=== PATIENT | male | born 1945 | race Caucasian/White ===

== ENCOUNTER 2020-06-07 16:59 | Emergency (ER) | payer MEDICARE, SELFPAY ==
--- NOTE | ~2020-06-07 | XR_ITS ---
EXAMINATION: XR foot RT min 3V DATE: 06/07/2020 18:49 INDICATION: Right foot pain. TECHNIQUE: 4 views of right foot were obtained. COMPARISON: Right foot radiographs 09/22/2010 FINDINGS: Bone alignment is normal. No fracture. There is severe osteoarthritis of first metatarsopha langeal joint and mild osteoarthritis of some the interphalangeal joints and midfoot joints. There ar e enthesophytes at the posterior and plantar aspects of calcaneal tuberosity. IMPRESSION: 1. Particular osteoarthritis. Reviewed, dictated and finalized at location A.
[2020-06-07 18:04] VITALS: BP 160/84; PULSE 98; RESP 18; TEMP 37.2; O2SAT 100
--- NOTE | 2020-06-07 18:27 | ED.GENADULT ---
HPI - General Adult General Chief complaint: Skin/Abscess/Foreign Body Stated complaint: right ankle infection Time Seen by Provider: 06/07/20 18:27 Source: patient Mode of arrival: ambulatory Limitations: no limitations History of Present Illness HPI narrative: 34-year-old male patient presents to the [facility] with complaints of right foot and right leg pain. Patient states that he has had a wound/callus on the bottom of his foot under the pinky toe for the past at least 6 months. Patient states he has been trying to soak it and scrape it off with a knife. Patient states about a month and a half ago he was visiting his son in [place] and got up in the middle night walking across a wooden floor without shoes on and states he noticed that when he got back to the bedroom he had some blood coming from his foot but does denies any specific injury. Patient does have a history of neuropathy. Patient states he has never been worked up for diabetes before and states he does have issues with whitecoat syndrome and states he has not been to the doctor in several years. Patient states that the past 2 days now he has noticed swelling to the foot and some redness to his lower extremity with warmth. Patient states he knows that it is getting more painful to walk on the foot. Related Data Allergies Allergy/AdvReac Type Severity Reaction Status Date / Time No Known Allergies Allergy Unknown Verified 06/07/20 17:53 Review of Systems Review of Systems: Narrative: CONSTITUTIONAL: Denies fever, chills, or sweats. EYES: Denies visual changes, redness, or discharge. ENT: Denies rhinorrhea, congestion, sore throat, or otalgia. CARDIOVASCULAR: Denies chest pain, palpitations, or edema. RESPIRATORY: Denies cough or dyspnea. GASTROINTESTINAL: Denies abdominal pain, nausea, vomiting, or diarrhea. GENITOURINARY: Denies dysuria or hematuria. SKIN: Denies rash or itching. MUSCULOSKELETAL: Denies back pain, joint pain, or myalgia. Positive right foot and right lower extremity pain NEUROLOGIC: Denies headache, numbness, or weakness. PSYCHIATRIC: Denies anxiety or depression. [facility] Past Medical History Medical History (Updated 06/07/20 @ 19:01 by DONALD Ward) Anal fissure Hypertension Social History Social History Gender identity (if verbalized by the patient): Male Comments At the time of my signature I agree with nursing past medical history, surgical, social, and family history. There is no relevant family history pertinent to the presenting complaint. Exam Narrative: Exam Narrative: GENERAL: Well-appearing, well-nourished, and in no acute distress. HEAD: Normocephalic, atraumatic. EYES: PERRLA and EOMI. ENT: Nares clear, no rhinorrhea or epistaxis. Mucous membranes moist. NECK: Supple. No lymphadenopathy CHEST: Clear to auscultation. No respiratory distress. HEART: Regular rate and rhythm. No murmur heard. Normal peripheral pulses. ABDOMEN: Soft, nontender, nondistended, normal active bowel sounds. EXTREMITIES: Patient able to bear weight and ambulate with increasing pain to the right foot. Patient does appear to have a callus noted on the sole of the foot under the pinky toe area. The callus does appear open with a black scab in the center and does have tenderness palpation around the callus area. Open callused area measuring approximately 1 cm in diameter. Patient does have 2+ pitting edema noted to the foot with swelling and erythema noted alf up the right calf with warmth present. Normal plantar/dorsiflexion, inversion/eversion. Distal motor and neurovascular status are intact SKIN: Warm, dry, no rash. NEURO: No focal deficits. Alert and oriented x3. Course Reevaluation(s) Reevaluation #1: Reevaluated patient after x-ray resulted. Discussed with him that the x-ray does not show any evidence of any infection to the bone which is reassuring. Discussed with patient we jamal markham
== END 2020-06-07 19:06 | disposition home or self-care (01) ==
PROVIDERS: Emergency Provider Nurse Practitioner Family
DX: L03.115 Cellulitis of right lower limb (principal); I10 Essential (primary) hypertension
CPT/HCPCS: 73630; 99213; G0463

== ENCOUNTER 2020-06-18 15:17 | Emergency (ER) | payer MEDICARE, SELFPAY ==
--- NOTE | 2020-06-18 15:24 | ED.GENADULT ---
HPI - General Adult General Chief complaint: Skin/Abscess/Foreign Body Stated complaint: riht leg pain Time Seen by Provider: 06/18/20 15:24 Source: patient Mode of arrival: ambulatory Limitations: no limitations History of Present Illness HPI narrative: 74-year-old male patient presents to the [facility] with complaints of right leg pain. Patient was seen here by this provider about 10 days ago and was diagnosed with cellulitis at that time. Patient was given an antibiotic. Patient states he did take the antibiotic however towards the end of the antibiotic he started to space them out because he was running out of antibiotics. Discussed with patient if he ever followed up with the referrals that we gave him that day, patient states he has not called anyone for a follow-up because the leg was getting better. Patient states he has been having chills the last 2 days and is noticed that the redness has worsened and continues to have warmth. Denies chest pain, shortness of breath. Denies any fevers that he is aware of. Related Data Home Medications Medication Instructions Recorded Confirmed No Home Medications 06/18/20 06/18/20 Allergies Allergy/AdvReac Type Severity Reaction Status Date / Time No Known Allergies Allergy Unknown Verified 06/18/20 15:45 Review of Systems Review of Systems: Narrative: CONSTITUTIONAL: Denies fever, chills, or sweats. EYES: Denies visual changes, redness, or discharge. ENT: Denies rhinorrhea, congestion, sore throat, or otalgia. CARDIOVASCULAR: Denies chest pain, palpitations, or edema. RESPIRATORY: Denies cough or dyspnea. GASTROINTESTINAL: Denies abdominal pain, nausea, vomiting, or diarrhea. GENITOURINARY: Denies dysuria or hematuria. SKIN: Denies rash or itching. Positive redness to right leg x2 weeks MUSCULOSKELETAL: Denies back pain, joint pain, or myalgia. NEUROLOGIC: Denies headache, numbness, or weakness. PSYCHIATRIC: Denies anxiety or depression. [facility] Past Medical History Medical History Anal fissure Hypertension Social History Social History Gender identity (if verbalized by the patient): Male Comments At the time of my signature I agree with nursing past medical history, surgical, social, and family history. There is no relevant family history pertinent to the presenting complaint. Exam Narrative: Exam Narrative: GENERAL: Well-appearing, well-nourished, and in no acute distress. HEAD: Normocephalic, atraumatic. EYES: PERRLA and EOMI. ENT: Nares clear, no rhinorrhea or epistaxis. Mucous membranes moist. NECK: Supple. No lymphadenopathy CHEST: Clear to auscultation. No respiratory distress. HEART: Regular rate and rhythm. No murmur heard. Normal peripheral pulses. ABDOMEN: Soft, nontender, nondistended, normal active bowel sounds. EXTREMITIES: Normal range of motion. No edema. SKIN: Warm, dry, no rash. Patient continues to have warm erythema noted to the right leg from the ankle now to the knee with most of the circumference of the lower leg covered it with redness. The swelling from last time has gotten significantly better but still has the callus/ulcer to the bottom of the foot. Patient continues to refuse to let us check his sugar. NEURO: No focal deficits. Alert and oriented x3. Course Vital Signs Vital signs: Vital Signs Temperature 36.6 C 06/18/20 15:52 Pulse Rate 108 H 06/18/20 15:52 Respiratory Rate 18 06/18/20 15:52 Blood Pressure 165/72 H 06/18/20 15:52 Pulse Oximetry 98 06/18/20 15:52 Temperature 36.6 C 06/18/20 15:52 Pulse Rate 108 H 06/18/20 15:52 Respiratory Rate 18 06/18/20 15:52 Blood Pressure 165/72 H 06/18/20 15:52 Pulse Oximetry 98 06/18/20 15:52 Vital signs reviewed The patient has been informed that they may have pre-hypertension or Hypertension based on a BP reading in the department. I recomm
[2020-06-18 15:52] VITALS: BP 165/72; PULSE 108; RESP 18; TEMP 36.6; O2SAT 98
== END 2020-06-18 16:35 | disposition short-term general hospital (02) ==
PROVIDERS: Emergency Provider Nurse Practitioner Family
DX: L03.115 Cellulitis of right lower limb (principal); I10 Essential (primary) hypertension
CPT/HCPCS: 99212; G0463

== ENCOUNTER 2020-06-18 17:01 | Inpatient (IN) | payer MEDICARE, SELFPAY ==
--- NOTE | ~2020-06-18 | US_ITS ---
EXAMINATION: US venous doppler LE RT EXAM DATE: 06/23/2020 13:26 INDICATION: Right leg, foot pain. TECHNIQUE: Multiple grayscale, color flow and Doppler images of the right lower extremity deep venous system were obtained and reviewed. There is no prior study for comparison. FINDINGS: The right common femoral, femoral and profunda veins demonstrate normal color flow, respira tory variation, augmentation and compressibility. Compressibility, color flow confirmed within the r ight popliteal, posterior tibial, peroneal, and greater saphenous veins. IMPRESSION: 1. No right lower extremity deep venous thrombosis. Reviewed, dictated and finalized at location A.
--- NOTE | ~2020-06-18 | CT_ITS ---
EXAMINATION: CT foot RT wo con DATE: 06/19/2020 11:43 INDICATION: Right foot osteomyelitis. TECHNIQUE: Computed tomography (CT) of the right foot was performed without intravenous contrast. Aut omated exposure control and iterative reconstruction technique were employed. The dose-length product was 398.79 mGy-cm. COMPARISON: Right foot radiographs 06/18/2020 FINDINGS: There is an ulcer near head of fifth metatarsal. Bone alignment is normal. No fracture. The re is severe osteoarthritis of first metatarsal phalangeal joint and mild osteoarthritis of some the midfoot joints and interphalangeal joints. There is moderate osteoarthritis of first tarsometatarsal joint. There is mild osteoarthritis of ankle joint. There are enthesophytes at the posterior and plan tar aspects of calcaneal tuberosity. There is subcutaneous edema about the ankle. IMPRESSION: 1. No specific evidence of osteomyelitis. 2. Polyarticular osteoarthritis. Reviewed, dictated and finalized at location A.
--- NOTE | ~2020-06-18 | XR_ITS ---
EXAMINATION: XR foot RT min 3V DATE: 06/18/2020 17:49 INDICATION: Right foot pain, wound at the plantar surface of the fifth metatarsal TECHNIQUE: Dorsoplantar, lateral, and 2 oblique views of the right foot were obtained. COMPARISON: 06/07/2020 FINDINGS: Bone alignment is normal. There is no fracture. There is advanced osteoarthritis at the fir st metatarsophalangeal joint. Mild osteoarthritis is noted at several interphalangeal joints as well as in the midfoot. There is soft tissue swelling near the fifth metatarsophalangeal joint. There is a subtle plantar soft tissue ulceration near the head of the fifth metatarsal. No associated underlyin g osseous change is seen. IMPRESSION: 1. Plantar soft tissue ulceration and soft tissue swelling near the head of the fifth metatarsal with out underlying osseous change. 2. Polyarticular osteoarthritis. Reviewed, dictated and finalized at location A. IMPRESSION: 1. Plantar soft tissue ulceration and soft tissue swelling near the head of the fifth metatarsal without underlying osseous change. 2. Polyarticular osteoarthritis.
[2020-06-18 17:07] VITALS: BP 160/84; PULSE 107; RESP 20; TEMP 37; O2SAT 97
[2020-06-18 17:57] LABS: Basophils Percent Auto 0.1 % (0.2-1.2); Eosinophils Absolute Auto 0.1 K/mm3 (0-0.3); Eosinophils Percent Auto 0.4 % (0-4.4); Hemoglobin 14.5 g/dL (14.0-18.0); Immature Granulocyte Absolute 0.06 K/mm3 (0.00-0.031); Immature Granulocyte Percent A 0.4 % (0-0.5); Lymphocytes Absolute Auto 1.22 K/mm3 (0.9-3.2); Lymphocytes Percent Auto 8.9 % (18.3-44.2); Mean Corpuscular HGB Conc 34.5 g/dl (32-36); Mean Corpuscular Hemoglobin 30.6 pg (26-34); Mean Corpuscular Volume 88.6 fl (80-100); Monocytes Absolute Auto 1.1 K/mm3 (0.1-0.6); Monocytes Percent Auto 7.6 % (2.6-8.5); Neutrophils Absolute Auto 11.4 K/mm3 (1.3-6.7); Neutrophils Percent Auto 82.6 % (45.5-73.1); Platelet Count Result 208 k/mm3 (150-375); Red Blood Count 4.74 M/mm3 (4.6-6.20); Red Cell Distribution Width 12.5 % (11.5-14.5); White Blood Count 13.8 K/mm3 (4.5-10.0)
[2020-06-18] MEDS: SODIUM CHLORIDE 0.9% IV 500 ML 999 ML IV CONT (17:59)
[2020-06-18 18:09] LABS: Lactic Acid Reflex 1.2 mmol/L (0.7-2.1)
[2020-06-18 18:11] LABS: Alanine Aminotransferase 35 U/L (4-50); Albumin Level 4.4 g/dL (3.5-5.1); Alkaline Phosphatase 71 U/L (38-126); Anion Gap 5 mmol/L (8-16); Aspartate Amino Transferase 28 U/L (17-59); Bilirubin,Total 1.3 mg/dL (0.2-1.3); Blood Urea Nitrogen 18 mg/dL (9-20); CRP 6.3 mg/dL (<1.0); Calcium 9.1 mg/dL (8.4-10.2); Carbon Dioxide 26 mmol/L (22-30); Chloride 105 mmol/L (98-107); Estimated CRCL calculation 75 ml/min; Estimated Glomerular Filt Rate > 60; Glucose 116 mg/dL (75-110); Sodium 136 mmol/L (137-145)
[2020-06-18 18:29] LABS: Erythrocyte Sedimentation Rate 28 mm/hr (0-20)
--- NOTE | 2020-06-18 19:31 | ED.GENADULT ---
HPI - General Adult General Chief complaint: Wound/Laceration Stated complaint: cellulitus Time Seen by Provider: 06/18/20 17:14 Source: patient Mode of arrival: ambulatory Limitations: no limitations History of Present Illness HPI narrative: Patient is a 74-year-old male who presents to emergency department from urgent care where he was being evaluated for a right lower extremity infection patient had been in the urgent care and evaluated around the for cellulitis of the ankle and warren region patient was placed on Keflex and was advised to follow-up with primary care patient did not follow-up and presented back today noting that he continues to have redness with some chills and nausea patient denies similar occurrence in the past patient notes that he does have a wound to the right lateral forefoot which is chronic in nature but there is no redness and swelling or drainage around this lesion. Patient denies any significant past medical history presents in no distress Related Data Home Medications Medication Instructions Recorded Confirmed No Home Medications 06/18/20 06/18/20 Allergies Allergy/AdvReac Type Severity Reaction Status Date / Time No Known Allergies Allergy Unknown Verified 06/18/20 17:10 Review of Systems Review of Systems: All systems reviewed & are unremarkable except as noted in HPI and below PMFSH Past Medical History Medical History Anal fissure Hypertension Social History Social History Gender identity (if verbalized by the patient): Male Exam Narrative: Exam Narrative: GENERAL: Well-appearing, well-nourished, and in no acute distress. HEAD: Normocephalic, atraumatic. EYES: PERRLA and EOMI. ENT: Nares clear, no rhinorrhea or epistaxis. Mucous membranes moist. CHEST: Clear to auscultation. No respiratory distress. No wheezes rales or rhonchi HEART: Regular rate and rhythm. No murmur heard. EXTREMITIES: Normal range of motion. 1+ edema at the level of the right ankle with erythema and splotchiness extending up to just below the knee with warmth to touch there is a ulcer to the right lateral forefoot along the fifth metatarsal head but there is no erythema or infectious signs around this lesion SKIN: Warm, dry, no rash. NEURO: No focal deficits. Alert and oriented x3. Neurovascularly intact. Cranial nerves II through XII grossly intact PSYCH: Normal mood and affect. Course Course Emergency Course: Patient evaluated in the emergency department has been hydrated and given antibiotic will be placed in hospital for treatment of his cellulitis given his failed outpatient therapy patient is afebrile nontoxic-appearing vital signs and ABCs intact and stable patient agrees with the plan Consultations Consultation #1: Case discussed with Tamra the hospitalist who has agreed to accept the patient Date: 06/18/20 Time: 19:36 Vital Signs Vital signs: Vital Signs Temperature 98.6 F 06/18/20 17:07 Pulse Rate 107 H 06/18/20 17:07 Respiratory Rate 06/18/20 17:07 Blood Pressure 160/84 H 06/18/20 17:07 Pulse Oximetry 97 06/18/20 17:07 Temperature 98.6 F 06/18/20 17:07 Pulse Rate 107 H 06/18/20 17:07 Respiratory Rate 06/18/20 17:07 Blood Pressure 160/84 H 06/18/20 17:07 Pulse Oximetry 97 06/18/20 17:07 Medical Decision Making MDM Narrative Medical decision making narrative: Patient with cellulitis of the right leg will be placed in hospital for IV therapy patient agrees with this plan Vital Signs Vital Signs: Vital Signs Temperature 98.6 F 06/18/20 17:07 Pulse Rate 107 H 06/18/20 17:07 Respiratory Rate 06/18/20 17:07 Blood Pressure 160/84 H 06/18/20 17:07 Pulse Oximetry 97 06/18/20 17:07 Temperature 98.6 F 06/18/20 17:07 Pulse Rate 107 H 06/18/20 17:07 Respiratory Rate 06/18/20 17:07 Blood Pressure 160/84
[2020-06-18] MEDS: ceFAZolin 2 GM/D5W 50 ML 2 GM/50 ML BAG IVPB (19:58)
[2020-06-18 20:15] VITALS: BP 130/75; PULSE 95; RESP 18; TEMP 36.7; O2SAT 96
[2020-06-18 21:45] VITALS: BP 136/74; PULSE 82; RESP 18; TEMP 36.4; O2SAT 97; BMI 32.4
[2020-06-18] MEDS: FAMOTIDINE 20 MG/2 ML VIAL IV PUSH (22:35)
[2020-06-18] MEDS: LACTATED RINGERS 1,000 ML 75 ML IV CONT (22:35)
[2020-06-19 04:00] VITALS: BP 136/78; PULSE 83; RESP 16; TEMP 36.9; O2SAT 100
[2020-06-19 06:20] LABS: Basophils Percent Auto 0.2 % (0.2-1.2); Eosinophils Absolute Auto 0.2 K/mm3 (0-0.3); Eosinophils Percent Auto 1.4 % (0-4.4); Hematocrit 41.8 % (42.0-52.0); Immature Granulocyte Absolute 0.03 K/mm3 (0.00-0.031); Immature Granulocyte Percent A 0.3 % (0-0.5); Lymphocytes Absolute Auto 1.94 K/mm3 (0.9-3.2); Lymphocytes Percent Auto 17.4 % (18.3-44.2); Mean Corpuscular HGB Conc 33.5 g/dl (32-36); Mean Corpuscular Hemoglobin 30.6 pg (26-34); Mean Corpuscular Volume 91.5 fl (80-100); Mean Platelet Volume 9.1 fl (7.4-10.4); Monocytes Absolute Auto 0.8 K/mm3 (0.1-0.6); Monocytes Percent Auto 7.4 % (2.6-8.5); Neutrophils Absolute Auto 8.2 K/mm3 (1.3-6.7); Neutrophils Percent Auto 73.3 % (45.5-73.1); Platelet Count Result 205 k/mm3 (150-375); Red Blood Count 4.57 M/mm3 (4.6-6.20); Red Cell Distribution Width 12.8 % (11.5-14.5); White Blood Count 11.2 K/mm3 (4.5-10.0)
[2020-06-19 06:32] LABS: Potassium 3.9 mmol/L (3.4-5.0)
[2020-06-19 06:35] LABS: Anion Gap 6 mmol/L (8-16); Blood Urea Nitrogen 16 mg/dL (9-20); Calcium 8.6 mg/dL (8.4-10.2); Carbon Dioxide 31 mmol/L (22-30); Chloride 104 mmol/L (98-107); Estimated CRCL calculation 87 ml/min; Estimated Glomerular Filt Rate > 60; Glucose 111 mg/dL (75-110); Sodium 141 mmol/L (137-145)
--- NOTE | 2020-06-19 07:36 | PM.IMHP ---
H&P: HPI History of Present Illness Date/Time: 06/19/20 07:36 Chief Complaint: Right lower extremity redness Narrative: This is a 74-year-old male with past medical history significant for former smoker no active medical issues on no home medications. Patient presented to the emergency room after roughly 2 weeks of redness of the right lower extremity. Patient had had oral surgery and was taking antibiotics for these had a handful left and he decided to take it but it did not go away then he presented to urgent care and he was prescribed antibiotics for 10 days however he noticed that the redness never went away and notice when walking barefooted that he was spotting the floor and noticed that he has a wound at the bottom of his right foot. He decided to go again to the urgent care but this time he was sent to the emergency room. Patient states that he has some chills lack of appetite generalized malaise, no nausea no vomiting no abdominal pain no diarrhea, no cough no shortness of breath no sputum production. Patient has some tenderness at the bottom of the foot were day wound is he does not know how the wound was started but he was trying on some orthopedic shoe and in between changes he thinks that does however was caused. Preliminary workup was significant for x-ray of the foot showing significant swelling to the metatarsal head. [facility] Past Medical History Medical History Anal fissure Hypertension Social History Social History Smoking status: Former smoker Tobacco type: cigarettes Smoking end date: 03/26/72 Alcohol intake: current Drinks per week: 3 Substance use: never Gender identity (if verbalized by the patient): Male Spiritual care concerns: No Meds Home Medications and Allergies Home Medications Medication Instructions Recorded Confirmed Type No Home Medications 06/18/20 06/18/20 History Allergies Allergy/AdvReac Type Severity Reaction Status Date / Time No Known Allergies Allergy Unknown Verified 06/18/20 17:10 Vital Signs Vital Signs - 24 hr 06/18/20 17:07 06/18/20 20:15 06/18/20 21:45 Temperature 98.6 F 98.1 F 97.5 F L Pulse Rate 107 H 95 82 Respiratory Rate 20 18 18 Blood Pressure 160/84 H 130/75 136/74 Pulse Oximetry 97 96 97 06/19/20 04:00 Temperature 98.5 F Pulse Rate 83 Respiratory Rate 16 Blood Pressure 136/78 Pulse Oximetry 100 Exam Narrative: Exam Narrative: Lying in bed in no acute distress well appearing. Const: General: comfortable, no acute distress, well developed, alert and awake Nutritional Appearance: average body habitus Orientation/consciousness: patient oriented x3 HENMT: Head: normal to inspection, normocephalic and atraumatic Ears: hearing grossly normal bilaterally Face and sinus: normal facial exam Eyes: General: appearance normal, both eyes and all related structures Pupils: Equal, round and reactive pupils present EOM: EOMs intact bilaterally Neck: Neck: full ROM, no lymphadenopathy and no JVD Thyroid: thyroid normal Lymphatic: no lymphadenopathy noted Resp: Effort & Inspection: normal respiratory effort and able to speak in complete sentences Auscultation: clear to auscultation bilaterally Cardio: Jugular venous distension: no JVD Rate: regular rate Rhythm: regular rhythm Heart sounds: S1 normal heart sound present and S2 normal heart sound present GI: GI Palp: Yes Soft to palpation and Yes No hepatosplenomegaly present : General: Yes deferred Skin: Rashes: no rashes Wounds: wounds noted (Right foot wound press at the base of the 5th metatarsal head) Neuro: General: patient oriented x3 and CN's II-XI intact bilaterally Cranial nerves: Yes CN's II-XII intact bilaterally and Yes Equal, round and reactive pupils present Cognition (Neuro): normal cognition Speech: normal speech Gait exam (Neuro): Normal gait
--- NOTE | 2020-06-19 08:20 | ADMGEN ---
This patient, Pee White, was admitted to 3 [facility] Surg Room 331-01. Patient/family oriented to hospital policies and general routines including ID bracelet, bed and alarms, visiting hours, pain management, procedures, bathroom and other care routines, personal items, smoking policy, room service/diet, and visiting hours. Information on how to activate the Rapid Response Team has been discussed. Patient/Family are encouraged to report perceived risks to care and to ask questions if they do not understand what they are told or what they should do. Patient was very pleasant and talkative when arriving on the unit. He was oriented to his room, call light, meds, and plan of care. He demonstrated good ability to ambulate. A wound on his left foot (pad of great toe) was photographed and uploaded. R leg was observed to be red and edematous. He said there was pain and pressure that was slightly increased with ambulation though he ambulated without significant increase in pain. Lungs were clear, heart sounds strong and regular, bowel sounds active.
[2020-06-19] MEDS: FAMOTIDINE 20 MG/2 ML VIAL IV PUSH ×2 (09:19→22:00)
[2020-06-19 09:21] VITALS: O2SAT 95
[2020-06-19 14:00] VITALS: BP 128/74; PULSE 90; RESP 20; TEMP 37.1; O2SAT 99
[2020-06-19] MEDS: LACTATED RINGERS 1,000 ML 75 ML IV CONT (14:53)
[2020-06-19 16:43] VITALS: BP 149/82; PULSE 94; RESP 16; O2SAT 100
[2020-06-19] MEDS: CLINDAMYCIN 900 MG/D5W 50 ML 900 MG/50 ML PIGGYBACK 50 MG IVPB ×2 (17:09→23:58)
[2020-06-19 20:00] VITALS: BP 154/80; PULSE 97; RESP 20; TEMP 36.6; O2SAT 99
[2020-06-19 23:47] VITALS: BP 160/94; PULSE 81; O2SAT 100
[2020-06-20] VITALS: BP 112/63; PULSE 71; RESP 20; TEMP 37.2; O2SAT 96
[2020-06-20 04:00] VITALS: BP 139/69; PULSE 75; RESP 20; TEMP 36.4; O2SAT 100
[2020-06-20] MEDS: CLINDAMYCIN 900 MG/D5W 50 ML 900 MG/50 ML PIGGYBACK 50 MG IVPB ×3 (06:57→20:21)
[2020-06-20] MEDS: FAMOTIDINE 20 MG/2 ML VIAL IV PUSH ×2 (08:32→20:21)
--- NOTE | 2020-06-20 11:18 | PM.IMPN ---
Progress Note: A&P Assessment and Plan (1) Foot ulcer, right: Code(s): L97.519 - Non-pressure chronic ulcer of other part of right foot with unspecified severity Status: Acute Assessment and Plan: CT of the foot did not show osteomyelitis Local care Wound care on board (2) Cellulitis of right leg: Code(s): L03.115 - Cellulitis of right lower limb Status: Acute Assessment and Plan: Continue clindamycin Anti streptolysin titer awaiting Continue to monitor Subjective Date/time seen: 06/20/20 11:18 I feel much better Review of Systems Review of Systems: Narrative: Patient presented to the emergency room after he went a 2nd time to urgent care due to right lower extremity cellulitis that was worsening patient was told to come to the emergency room states that today looks much better. Constitutional: Comments: No chills no fevers no rigors Cardiovascular: Comments: No chest pain no PND no orthopnea Respiratory: Comments: No shortness of breath no cough no sputum Gastrointestinal: Comments: No nausea no vomiting no diarrhea no constipation Musculoskeletal: Comments: Right foot ulcer Integumentary/Breasts: Comments: Right foot wound at the base of the 5th metatarsal Neurologic: Comments: No sensorimotor deficit Exam Narrative: Exam Narrative: Sitting by the edge of the bed Const: General: comfortable, no acute distress, well developed, alert and awake Nutritional Appearance: average body habitus Orientation/consciousness: patient oriented x3 HENMT: Head: normal to inspection, normocephalic and atraumatic Ears: hearing grossly normal bilaterally Face and sinus: normal facial exam Eyes: General: appearance normal, both eyes and all related structures Pupils: Equal, round and reactive pupils present EOM: EOMs intact bilaterally Neck: Neck: full ROM, no lymphadenopathy and no JVD Thyroid: thyroid normal Lymphatic: no lymphadenopathy noted Resp: Effort & Inspection: normal respiratory effort and able to speak in complete sentences Auscultation: clear to auscultation bilaterally Cardio: Jugular venous distension: no JVD Rate: regular rate Rhythm: regular rhythm Heart sounds: S1 normal heart sound present and S2 normal heart sound present GI: GI Palp: Yes Soft to palpation and Yes No hepatosplenomegaly present : General: Yes deferred Skin: Rashes: no rashes Wounds: wounds noted (At the bottom of the right foot on the 5th metatarsal head) Neuro: General: patient oriented x3 and CN's II-XI intact bilaterally Cranial nerves: Yes CN's II-XII intact bilaterally and Yes Equal, round and reactive pupils present Cognition (Neuro): normal cognition Speech: normal speech Gait exam (Neuro): Normal gait present Motor exam (neuro): 5/5 motor strength present throughout Extrem: General: full ROM, no joint enlargement and other (Right lower extremity redness) Objective Data Vital Signs Vital Signs: Vital Signs - 24 hr 06/19/20 14:00 06/19/20 16:43 06/19/20 20:00 Temperature 98.8 F 97.9 F Pulse Rate 90 94 97 Respiratory Rate 20 16 20 Blood Pressure 128/74 149/82 H 154/80 H Pulse Oximetry 99 100 99 06/19/20 23:47 06/20/20 00:00 06/20/20 04:00 Temperature 98.9 F 97.5 F L Pulse Rate 81 71 75 Respiratory Rate 20 20 Blood Pressure 160/94 H 112/63 139/69 Pulse Oximetry 100 96 100 Intake/Output Intake/Output: Intake & Output 06/17/20 06/18/20 06/19/20 06/20/20 23:59 23:59 23:59 23:59 Intake Total 650 3510 1320 Output Total 525 1575 1150 Balance 125 1935 170 Meds/Results Medications: Active Medications Generic Name Dose Route Start Last Admin Trade Name Freq PRN Reason Stop Dose Admin Famotidine 20 mg 06/18/20 21:00 06/20/20 08:32 Famotidine 20 Mg/2 Ml Vial IV PUSH 20 mg Q12HR LAST Administration Cefazolin Sodium 1 gm in 50 mls @ 100 mls/hr 06/19/20 05:00 06/20/20 06:06 Ancef 1 Gm/D5w 50 Ml Pm IVPB Infused Q8HR LAST Infus
[2020-06-20 11:43] LABS: Basophils Percent Auto 0.4 % (0.2-1.2); Eosinophils Absolute Auto 0.2 K/mm3 (0-0.3); Eosinophils Percent Auto 2.9 % (0-4.4); Hematocrit 39.4 % (42.0-52.0); Hemoglobin 13.2 g/dL (14.0-18.0); Immature Granulocyte Absolute 0.03 K/mm3 (0.00-0.031); Immature Granulocyte Percent A 0.4 % (0-0.5); Lymphocytes Absolute Auto 1.52 K/mm3 (0.9-3.2); Mean Corpuscular HGB Conc 33.5 g/dl (32-36); Mean Corpuscular Hemoglobin 30.6 pg (26-34); Mean Corpuscular Volume 91.2 fl (80-100); Mean Platelet Volume 9.4 fl (7.4-10.4); Monocytes Absolute Auto 0.7 K/mm3 (0.1-0.6); Neutrophils Absolute Auto 4.8 K/mm3 (1.3-6.7); Neutrophils Percent Auto 66.3 % (45.5-73.1); Platelet Count Result 212 k/mm3 (150-375); Red Blood Count 4.32 M/mm3 (4.6-6.20); Red Cell Distribution Width 12.6 % (11.5-14.5); White Blood Count 7.2 K/mm3 (4.5-10.0)
[2020-06-20 11:57] LABS: Anion Gap 5 mmol/L (8-16); Blood Urea Nitrogen 12 mg/dL (9-20); Calcium 8.6 mg/dL (8.4-10.2); Carbon Dioxide 29 mmol/L (22-30); Chloride 106 mmol/L (98-107); Estimated CRCL calculation 97 ml/min; Estimated Glomerular Filt Rate > 60; Glucose 117 mg/dL (75-110); Potassium 3.7 mmol/L (3.4-5.0); Sodium 140 mmol/L (137-145)
[2020-06-20 14:00] VITALS: BP 149/86; PULSE 94; RESP 18; TEMP 36.6; O2SAT 99
[2020-06-20] MEDS: LACTATED RINGERS 1,000 ML 75 ML IV CONT (14:30)
[2020-06-20 22:00] VITALS: BP 154/80; PULSE 98; RESP 18; TEMP 36.7; O2SAT 100
[2020-06-20 23:01] VITALS: PULSE 83; O2SAT 97
[2020-06-21 06:00] VITALS: BP 160/90; PULSE 92; RESP 16; TEMP 36.6; O2SAT 100
[2020-06-21 08:18] VITALS: O2SAT 98
[2020-06-21] MEDS: LACTATED RINGERS 1,000 ML 75 ML IV CONT (08:51)
[2020-06-21] MEDS: FAMOTIDINE 20 MG/2 ML VIAL IV PUSH ×2 (08:52→21:18)
[2020-06-21] MEDS: CLINDAMYCIN 900 MG/D5W 50 ML 900 MG/50 ML PIGGYBACK 50 MG IVPB ×3 (09:28→22:15)
[2020-06-21 13:34] VITALS: BP 163/83; PULSE 93; RESP 20; TEMP 36.4; O2SAT 100
--- NOTE | 2020-06-21 15:50 | PM.IMPN ---
Progress Note: A&P Assessment and Plan (1) Foot ulcer, right: Code(s): L97.519 - Non-pressure chronic ulcer of other part of right foot with unspecified severity Status: Acute Assessment and Plan: UPON FURTHER EXAMINATION IT IS A CALLUS PATIENT WITH FOLLOWING OUTPATIENT SETTING WITH PODIATRY FOR THIS (2) Cellulitis of right leg: Code(s): L03.115 - Cellulitis of right lower limb Status: Acute Assessment and Plan: ON CLINDAMYCIN IMPROVED AWAITING ANTISTREPTOLYSIN TITER Subjective Date/time seen: 06/21/20 15:50 I THINK I HAVE SEEN A LOT OF IMPROVEMENT IN MY LEG Review of Systems Review of Systems: Narrative: PATIENT PRESENTED TO THE HOSPITAL THROUGH THE EMERGENCY ROOM DUE TO FAILING OUTPATIENT THERAPY WITH ANTIBIOTICS THROUGH URGENT CARE FOR RIGHT LOWER EXTREMITY CELLULITIS Constitutional: Comments: NO FEVERS NO RIGORS NO CHILLS Exam Narrative: Exam Narrative: PATIENT IS LAYING IN BED IN NO ACUTE DISTRESS Const: General: comfortable, no acute distress, well developed, alert and awake Nutritional Appearance: average body habitus Orientation/consciousness: patient oriented x3 HENMT: Head: normal to inspection, normocephalic and atraumatic Ears: hearing grossly normal bilaterally Face and sinus: normal facial exam Eyes: General: appearance normal, both eyes and all related structures Pupils: Equal, round and reactive pupils present EOM: EOMs intact bilaterally Neck: Neck: full ROM, no lymphadenopathy and no JVD Thyroid: thyroid normal Lymphatic: no lymphadenopathy noted Resp: Effort & Inspection: normal respiratory effort and able to speak in complete sentences Auscultation: clear to auscultation bilaterally Cardio: Jugular venous distension: no JVD Rate: regular rate Rhythm: regular rhythm Heart sounds: S1 normal heart sound present and S2 normal heart sound present GI: GI Palp: Yes Soft to palpation and Yes No hepatosplenomegaly present : General: Yes deferred Skin: Rashes: no rashes Wounds: no wounds Neuro: General: patient oriented x3 and CN's II-XI intact bilaterally Cranial nerves: Yes CN's II-XII intact bilaterally and Yes Equal, round and reactive pupils present Cognition (Neuro): normal cognition Speech: normal speech Gait exam (Neuro): Normal gait present Motor exam (neuro): 5/5 motor strength present throughout Extrem: General: full ROM, no joint enlargement, no pedal edema and other (RIGHT LOWER EXTREMITY REDNESS) Objective Data Vital Signs Vital Signs: Vital Signs - 24 hr 06/20/20 22:00 06/20/20 23:01 06/21/20 06:00 Temperature 98.1 F 97.9 F Pulse Rate 98 83 92 Respiratory Rate 18 16 Blood Pressure 154/80 H 160/90 H Pulse Oximetry 100 97 100 06/21/20 08:18 06/21/20 13:34 Temperature 97.5 F L Pulse Rate 93 Respiratory Rate 20 Blood Pressure 163/83 H Pulse Oximetry 98 100 Intake/Output Intake/Output: Intake & Output 06/18/20 06/19/20 06/20/20 06/21/20 23:59 23:59 23:59 23:59 Intake Total 650 3510 3260 1690 Output Total 525 1575 1950 Balance 125 1935 1310 1690 Meds/Results Medications: Active Medications Generic Name Dose Route Start Last Admin Trade Name Freq PRN Reason Stop Dose Admin Famotidine 20 mg 06/18/20 21:00 06/21/20 08:52 Famotidine 20 Mg/2 Ml Vial IV PUSH 20 mg Q12HR LAST Administration Cefazolin Sodium 1 gm in 50 mls @ 100 mls/hr 06/19/20 05:00 06/21/20 15:28 Ancef 1 Gm/D5w 50 Ml Pm IVPB 100 mls/hr Q8HR LAST Administration Lactated Ringer's 1,000 mls @ 75 mls/hr 06/18/20 19:40 06/21/20 15:31 Lr - Lactated Ringers Iv IV CONT Not Given .[id number] LAST Clindamycin Phosphate 900 mg in 50 mls @ 50 mls/hr 06/19/20 10:00 06/21/20 10:28 Cleocin 900 Mg/D5w 50 Ml IVPB Infused Q8HR LAST Infusion Levofloxacin/Dextrose 750 mg in 150 mls @ 100 mls/hr 06/19/20 09:00 06/21/20 12:05 Levaquin 750 Mg/D5w 150 Ml IVPB Infused Q24H LAST Infusion Ondansetron HCl 4 mg 0
[2020-06-21 22:00] VITALS: BP 165/82; PULSE 89; RESP 20; TEMP 36.8; O2SAT 98
[2020-06-22] MEDS: LACTATED RINGERS 1,000 ML 75 ML IV CONT (03:00)
[2020-06-22 06:00] VITALS: BP 143/68; PULSE 74; RESP 20; TEMP 36.6; O2SAT 100
[2020-06-22] MEDS: CLINDAMYCIN 900 MG/D5W 50 ML 900 MG/50 ML PIGGYBACK 50 MG IVPB ×3 (06:03→21:20)
[2020-06-22] MEDS: ONDANSETRON INJ 4 MG/2 ML VIAL IV PUSH (09:00)
--- NOTE | 2020-06-22 09:13 | ECG_ITS ---
Measurements Intervals [place] Rate: 86 P: -7 CT: 132 QRS: -26 QRSD: 86 T: 7 QT: 357 QTc: 428 Interpretive Statements SINUS RHYTHM EARLY PRECORDIAL R/S TRANSITION BASELINE ARTIFACT- II, III, AVF BORDERLINE ECG Electronically Signed On 06-22-2020 10:14:46 CDT by Kenneth Faustin D.O.
[2020-06-22 10:03] LABS: Basophils Percent Auto 0.3 % (0.2-1.2); Eosinophils Absolute Auto 0.3 K/mm3 (0-0.3); Eosinophils Percent Auto 3.3 % (0-4.4); Hematocrit 41.2 % (42.0-52.0); Hemoglobin 13.9 g/dL (14.0-18.0); Immature Granulocyte Absolute 0.03 K/mm3 (0.00-0.031); Immature Granulocyte Percent A 0.4 % (0-0.5); Lymphocytes Absolute Auto 1.52 K/mm3 (0.9-3.2); Lymphocytes Percent Auto 19.1 % (18.3-44.2); Mean Corpuscular HGB Conc 33.7 g/dl (32-36); Mean Corpuscular Hemoglobin 30.3 pg (26-34); Monocytes Absolute Auto 0.6 K/mm3 (0.1-0.6); Monocytes Percent Auto 7.9 % (2.6-8.5); Neutrophils Absolute Auto 5.5 K/mm3 (1.3-6.7); Platelet Count Result 252 k/mm3 (150-375); Red Blood Count 4.58 M/mm3 (4.6-6.20); Red Cell Distribution Width 12.7 % (11.5-14.5)
[2020-06-22 10:18] LABS: Anion Gap 8 mmol/L (8-16); Blood Urea Nitrogen 13 mg/dL (9-20); Calcium 9.2 mg/dL (8.4-10.2); Carbon Dioxide 26 mmol/L (22-30); Chloride 105 mmol/L (98-107); Estimated CRCL calculation 97 ml/min; Estimated Glomerular Filt Rate > 60; Glucose 112 mg/dL (75-110); Potassium 3.9 mmol/L (3.4-5.0); Sodium 139 mmol/L (137-145)
[2020-06-22 10:26] LABS: Troponin I < 0.012 ng/mL (0.000-0.034)
[2020-06-22 14:00] VITALS: BP 157/80; PULSE 94; RESP 16; TEMP 36.6; O2SAT 100
[2020-06-22] MEDS: FAMOTIDINE 20 MG/2 ML VIAL IV PUSH ×2 (14:41→21:20)
--- NOTE | 2020-06-22 16:50 | PM.IMPN ---
Progress Note: A&P Assessment and Plan (1) Cellulitis of right leg: Code(s): L03.115 - Cellulitis of right lower limb Status: Acute Assessment and Plan: CONTINUE CLINDAMYCIN AWAITING ANTI STREPTOLYSIN TITER IMPROVED (2) Foot ulcer, right: Code(s): L97.519 - Non-pressure chronic ulcer of other part of right foot with unspecified severity Status: Acute Assessment and Plan: PATIENT HAS A CALLUS WHICH HE WILL FOLLOW-UP IN THE OUTPATIENT SETTING WITH PODIATRY (3) Precordial chest pain: Code(s): R07.2 - Precordial pain Status: Acute Assessment and Plan: EKG NORMAL TROPONIN NORMAL Subjective Date/time seen: 06/22/20 16:50 I FEEL OKAY WOULD HAVE CHEST PAIN MIGHT BE MY GERD Review of Systems Review of Systems: Narrative: PATIENT COMPLAINING OF CHEST PAIN NO OTHER ISSUES AT THIS TIME Exam Narrative: Exam Narrative: SITTING IN BED IN NO ACUTE DISTRESS Const: General: comfortable, no acute distress, well developed, alert and awake Nutritional Appearance: average body habitus Orientation/consciousness: patient oriented x3 HENMT: Head: normal to inspection, normocephalic and atraumatic Ears: hearing grossly normal bilaterally Face and sinus: normal facial exam Eyes: General: appearance normal, both eyes and all related structures Pupils: Equal, round and reactive pupils present EOM: EOMs intact bilaterally Neck: Neck: full ROM, no lymphadenopathy and no JVD Thyroid: thyroid normal Lymphatic: no lymphadenopathy noted Resp: Effort & Inspection: normal respiratory effort and able to speak in complete sentences Auscultation: clear to auscultation bilaterally Cardio: Jugular venous distension: no JVD Rate: regular rate Rhythm: regular rhythm Heart sounds: S1 normal heart sound present and S2 normal heart sound present GI: GI Palp: Yes Soft to palpation and Yes No hepatosplenomegaly present : General: Yes deferred Skin: Rashes: no rashes Wounds: no wounds Neuro: General: patient oriented x3 and CN's II-XI intact bilaterally Cranial nerves: Yes CN's II-XII intact bilaterally and Yes Equal, round and reactive pupils present Cognition (Neuro): normal cognition Speech: normal speech Gait exam (Neuro): Normal gait present Motor exam (neuro): 5/5 motor strength present throughout Extrem: General: other ( RIGHT FOOT PLANTAR CALLUS) Right lower extremity: lower leg Details: erythema and pitting edema Objective Data Vital Signs Vital Signs: Vital Signs - 24 hr 06/21/20 22:00 06/22/20 06:00 06/22/20 14:00 Temperature 98.2 F 97.9 F 97.9 F Pulse Rate 89 74 94 Respiratory Rate 20 20 16 Blood Pressure 165/82 H 143/68 H 157/80 H Pulse Oximetry 98 100 100 Intake/Output Intake/Output: Intake & Output 06/19/20 06/20/20 06/21/20 06/22/20 23:59 23:59 23:59 23:59 Intake Total 3510 3260 4100 1300 Output Total 1575 1950 800 900 Balance 1935 1310 3300 400 Meds/Results Medications: Active Medications Generic Name Dose Route Start Last Admin Trade Name Freq PRN Reason Stop Dose Admin Calcium Carbonate 200 mg 06/22/20 09:00 Calcium Carbonate (Tums) 500 Mg (200 Mg Elemental) PO Q6H PRN Indigestion Famotidine 20 mg 06/18/20 21:00 06/22/20 14:41 Famotidine 20 Mg/2 Ml Vial IV PUSH 20 mg Q12HR LAST Administration Cefazolin Sodium 1 gm in 50 mls @ 100 mls/hr 06/19/20 05:00 06/22/20 14:41 Ancef 1 Gm/D5w 50 Ml Pm IVPB 100 mls/hr Q8HR LAST Administration Clindamycin Phosphate 900 mg in 50 mls @ 50 mls/hr 06/19/20 10:00 06/22/20 14:42 Cleocin 900 Mg/D5w 50 Ml IVPB 50 mls/hr Q8HR LAST Administration Levofloxacin/Dextrose 750 mg in 150 mls @ 100 mls/hr 06/19/20 09:00 06/22/20 10:12 Levaquin 750 Mg/D5w 150 Ml IVPB Infused Q24H LAST Infusion Ondansetron HCl 4 mg 06/18/20 19:38 06/22/20 09:00 Ondansetron Inj 4 Mg/2 Ml Vial IV PUSH 4 mg Q4H PRN Administration Nausea Radiology Re
[2020-06-22 20:36] LABS: Anti Streptolysin O Screen 90 IU/mL (<200)
[2020-06-22 22:00] VITALS: BP 175/77; PULSE 85; RESP 20; TEMP 36.7; O2SAT 100
[2020-06-23 06:00] VITALS: BP 142/84; PULSE 91; RESP 20; TEMP 36.6; O2SAT 100
[2020-06-23] MEDS: CLINDAMYCIN 900 MG/D5W 50 ML 900 MG/50 ML PIGGYBACK 50 MG IVPB ×2 (06:03→14:37)
[2020-06-23 08:00] VITALS: PULSE 91; RESP 20; O2SAT 100
[2020-06-23] MEDS: lisinopriL 10 MG TABLET PO (09:22)
[2020-06-23] MEDS: FAMOTIDINE 20 MG/2 ML VIAL IV PUSH (09:22)
[2020-06-23 14:00] VITALS: BP 131/81; PULSE 86; RESP 16; TEMP 36.7; O2SAT 99
--- NOTE | 2020-06-23 14:22 | PM.DS ---
DS: Admitting Diagnosis Admitting Diagnosis Admitting Diagnosis: (1) Cellulitis of right leg: (2) Foot ulcer, right: DS: Discharge Diagnosis Discharge Diagnosis (1) Cellulitis of right leg: Code(s): L03.115 - Cellulitis of right lower limb Status: Acute Assessment and Plan: IMPROVED WILL GO HOME AND COMPLETE A COURSE OF ANTIBIOTICS FOR 7 DAYS WITH CLINDAMYCIN AND LEVOFLOXACIN ANTI STREPTOLYSIN TITER WAS NEGATIVE (2) Foot ulcer, right: Code(s): L97.519 - Non-pressure chronic ulcer of other part of right foot with unspecified severity Status: Acute Assessment and Plan: IT'S A FOOT CALLUS PATIENT WAS SEE DRESS OPERATOR IN THE OUTPATIENT SETTING (3) HTN (hypertension): Code(s): I10 - Essential (primary) hypertension Status: Acute Assessment and Plan: STARTED ON LISINOPRIL FOLLOW-UP IN THE OUTPATIENT SETTING (4) Precordial chest pain: Code(s): R07.2 - Precordial pain Status: Acute Assessment and Plan: EKG WITH NO CHANGES TROPONINS WITHIN NORMAL LIMITS DS: Summary Hospital Course Reason for hospitalization: RIGHT LOWER EXTREMITY CELLULITIS Hospital Course: THIS IS A 74 IS A YEAR OLD MALE WITH PAST MEDICAL HISTORY SIGNIFICANT FOR GENERALIZED ANXIETY ON NO TREATMENT HYPERTENSION ON NO TREATMENT PATIENT PRESENTED TO THE EMERGENCY ROOM AFTER HE PRESENTED A 2ND TIME TO URGENT CARE FOR RIGHT LOWER EXTREMITY CELLULITIS AND HE WAS SENT OVER TO EMERGENCY ROOM. PATIENT HAD BEEN ON ANTIBIOTICS FOR 10 DAYS BUT NO IMPROVEMENT. HE WAS ADMITTED TO GENERAL MEDICAL FLOOR AND PLACED OF EYE ON IV ANTIBIOTICS CLINDAMYCIN AND LEVOFLOXACIN. CONSULTS OBTAINED: WOUND CARE PATIENT WAS FOUND TO HAVE A CALLUS ON THE PLANTAR ASPECT OF THE RIGHT FOOT AT THE BASE OF THE 5TH METATARSAL AND WAS ADVISED TO SEE A DRESS OPERATOR IN THE OUTPATIENT SETTING. HE WAS NOTICED TO BE HYPERTENSIVE THROUGHOUT HIS HOSPITAL STAY AND WAS STARTED ON LISINOPRIL PATIENT WILL FOLLOW-UP IN THE OUTPATIENT SETTING FOR THIS. PROCEDURES NO PROCEDURES Status at Discharge Cognitive/behavioral status at discharge: AAOX3 Functional status at discharge: independent ambulation Overall status at discharge: patient is back to baseline Time Spent with Patient Time attestation: Total time spent providing and/or coordinating discharge services: Exam Narrative: Exam Narrative: SITTING IN BED Const: General: comfortable, no acute distress, well developed, alert and awake Nutritional Appearance: average body habitus Orientation/consciousness: patient oriented x3 HENMT: Head: normal to inspection, normocephalic and atraumatic Ears: hearing grossly normal bilaterally Face and sinus: normal facial exam Eyes: General: appearance normal, both eyes and all related structures Pupils: Equal, round and reactive pupils present EOM: EOMs intact bilaterally Neck: Neck: full ROM, no lymphadenopathy and no JVD Thyroid: thyroid normal Lymphatic: no lymphadenopathy noted Resp: Effort & Inspection: normal respiratory effort and able to speak in complete sentences Auscultation: clear to auscultation bilaterally Cardio: Jugular venous distension: no JVD Rate: regular rate Rhythm: regular rhythm Heart sounds: S1 normal heart sound present and S2 normal heart sound present GI: GI Palp: Yes Soft to palpation and Yes No hepatosplenomegaly present : General: Yes deferred Skin: Rashes: no rashes Wounds: no wounds Neuro: General: patient oriented x3 and CN's II-XI intact bilaterally Cranial nerves: Yes CN's II-XII intact bilaterally and Yes Equal, round and reactive pupils present Cognition (Neuro): normal cognition Speech: normal speech Gait exam (Neuro): Normal gait present Motor exam (neuro): 5/5 motor strength present throughout Extrem: General: normal to inspection, full ROM, no joint enlargement and no pedal edema DS: Data Data Completed and Pending Completed studies during hospi
== END 2020-06-23 16:40 | disposition home or self-care (01) | DRG 603 ==
LOC: ANHED 19:36 → ANH3MEDSUR 20:19
PROVIDERS: Emergency Medicine Emergency Medical Services; Admitting Provider Internal Medicine; Emergency Provider Emergency Medicine; Visit Provider Internal Medicine
DX: L03.115 Cellulitis of right lower limb (principal); L97.519 Non-pressure chronic ulcer of other part of right foot with unspecified severity; L84 Corns and callosities; I10 Essential (primary) hypertension; R07.2 Precordial pain; Z87.891 Personal history of nicotine dependence
CPT/HCPCS: 36415; 73630; 73700; 80048; 80053; 83605; 84484; 84550; 85025; 85652; 86060; 86140; 93005; 93971; 96361; 96365; 96366; 96367; 96375; 96376; 99285; A9270; G0378; J0131; J0690; J1956; J2405; J7040; J7120

== ENCOUNTER 2024-04-19 17:11 | Emergency (ER) | payer MEDICARE, SELFPAY ==
[2024-04-19 17:26] VITALS: BP 183/81; PULSE 109; RESP 16; TEMP 36.9; O2SAT 100
--- NOTE | 2024-04-19 18:07 | ED.GENADULT ---
HPI - General Adult General Chief complaint: Urogenital-Male Stated complaint: UTI Time Seen by Provider: 04/19/24 18:07 Source: patient, RN notes reviewed and old records reviewed Mode of arrival: ambulatory Limitations: no limitations History of Present Illness HPI narrative: 78-year-old male presents to the [facility] with concerns for a UTI. Patient reports her he has had issues with urination for several months. States that he will attempt to urinate, sometimes has to sit down. Sometimes he will urinate had an it will start and stop. Sometimes having trouble to empty his bladder. Over the last month he has had some leakage chin issues, discomfort with urination. No burning. No abdominal pain. Denies any back pain. No CVA tenderness. Reports that he does have an appointment with Urology on 17 May. Patient verbalizes concerns for prostate issues, discussed that we do not do lab work. Discussed the importance of following up with primary care provider, does not have 1. States he has not had a primary care provider since Dr. Taylor retired approximately 5 years ago. Onset (ago): month(s) Related Data Home Medications ?Medication ?Instructions ?Recorded ?Confirmed ?Last Taken ?Type No Home Medications 06/18/20 06/18/20 Unknown History Allergies Allergy/AdvReac Type Severity Reaction Status Date / Time No Known Allergies Allergy Unknown Verified 06/18/20 17:10 Review of Systems Review of Systems: All systems reviewed & are unremarkable except as noted in HPI and below Constitutional: Constitutional: Reports no additional constitutional complaints ENT: Reports system reviewed and no additional complaints, except as documented Cardiovascular: Cardiovascular: Reports no additional cardiovascular complaints, Denies chest pain and Denies dyspnea Respiratory: Respiratory: Reports no additional respiratory complaints, Denies chest congestion, Denies cough and Denies dyspnea Genitourinary: Genitourinary: Reports as per HPI, Denies flank pain, Denies penile discharge, Denies scrotal swelling, Denies testicular pain, Reports urinary hesitancy, Reports urinary incontinence and Reports urinary urgency Musculoskeletal: Musculoskeletal: Reports no additional musculoskeletal complaints Integumentary/Breasts: Skin/Breast: Reports system reviewed and no additional complaints, except as docu PMFSH Past Medical History Medical History Anal fissure Hypertension Social History Social History Smoking status: Former smoker Tobacco type: cigarettes Smoking end date: 03/26/72 Alcohol intake: current Drinks per week: 3 Substance use: never Gender identity (if verbalized by the patient): Male Spiritual care concerns: No Comments At the time of my signature, I reviewed and agree with the nursing past medical, surgical, social, and family history. There is no relevant family history pertinent to the patient complaint. Exam Const: General: cooperative, healthy appearing, comfortable, no acute distress, well developed, alert and well nourished Nutritional Appearance: well nourished Orientation/consciousness: patient oriented x3 Limitations: no limitations HENMT: Head: normal to inspection Eyes: General: appearance normal, both eyes and all related structures Alignment and Position: alignment normal Neck: Neck: normal visual inspection, full ROM, no lymphadenopathy and no meningeal signs Chest: Chest palpation & inspection: normal inspection of the chest Resp: Effort & Inspection: normal respiratory effort and able to speak in complete sentences Cardio: Rate: regular rate Skin: General skin exam: normal color and no rashes or lesions noted Neuro: General: patient oriented x3, gait normal, moves all extremities and no meningeal signs Cognition (Neuro): normal cognition Speech: normal speech Gait exam (Neuro): Normal gait present Extrem: General: normal to inspection, full ROM, capillary refill normal and normal gait Psych: Appearance: grossly normal and well kempt Mental Status: mental status grossly normal Speech and movement: Normal speech and movement present and Clear speech present Affect: normal affect Attitude: cooperative Course Course Level of Care: Express Care Visit Vital Signs Vital signs: Vital Signs Temperature 98.5 F 04/19/24 17:26 Pulse Rate 109 H 04/19/24 17:26 Respiratory Rate 16 04/19/24 17:26 Blood Pressure 183/81 H 04/19/24 17:26 Pulse Oximetry 100 04/19/24 17:26 Oxygen Delivery Room Air 04/19/24 17:26 Temperature 98.5 F 04/19/24 17:26 Pulse Rate 109 H 04/19/24 17:26 Respiratory Rate 16 04/19/24 17:26 Blood Pressure 183/81 H 04/19/24 17:26 Pulse Oximetry 100 04/19/24 17:26 Oxygen Delivery Room Air 04/19/24 17:26 Reviewed Medical Decision Making MDM Narrative Medical decision making narrative: Patient sitting comfortably in exam room. Nontoxic, blood pressure is elevated. Patient in no acute distress Patient presents for concerns for a UTI, prostate issues. Urine dip does not show signs of a UTI, discussed his high blood pressure, the importance of following up with primary care provider. Physician liaison number given. Patient already has an appointment with Urology established for the 17 of May. Patient denied any other symptoms other than intermittent unable to empty bladder, urinary leakage, when urinating and intermittent stream of urination. Discharge instructions reviewed with patient, as well as provided in writing per nursing staff. The instructions also include specific and strict return/GO TO THE ER as well as f/u information. All questions have been answered, and the patient deny any further questions with discharge and discharge plan. Some parts of this dictation were generated by voice recognition software and may contain typographical and/or grammatical inaccuracies. Differential Diagnosis Differential Diagnosis: Kidney dysfunction, prostate enlarged, UTI Medical Records Medical records reviewed: Yes I reviewed the external patient's medical records. Vital Signs Vital Signs: Vital Signs Temperature 98.5 F 04/19/24 17:26 Pulse Rate 109 H 04/19/24 17:26 Respiratory Rate 16 04/19/24 17:26 Blood Pressure 183/81 H 04/19/24 17:26 Pulse Oximetry 100 04/19/24 17:26 Oxygen Delivery Room Air 04/19/24 17:26 Temperature 98.5 F 04/19/24 17:26 Pulse Rate 109 H 04/19/24 17:26 Respiratory Rate 16 04/19/24 17:26 Blood Pressure 183/81 H 04/19/24 17:26 Pulse Oximetry 100 04/19/24 17:26 Oxygen Delivery Room Air 04/19/24 17:26 Reviewed Lab Data Lab results reviewed: Yes I reviewed the patient's lab results. Labs: Lab Results 04/19/24 Range/Units 17:30 POC Urine Color Yellow POC Urine Clarity Clear POC Urine pH 6.0 POC Ur Specif Ocate 1.005 POC Urine Protein Negative (Negative) POC Ur Glucose (UA) Negative (Negative) POC Urine Ketones Negative (Negative) POC Urine Blood Negative (Negative) POC Urine Nitrite Negative (Negative) POC Urine Bilirubin Negative (Negative) POC Urine Urobilinogen 0.2 POC U Leukocyte Esteras Negative (Negative) Reviewed Critical Care Time Critical Care Time Critical Care Time: No Discharge Plan Discharge Clinical Impression: Urinary frequency, Elevated blood pressure reading Patient Disposition: Home, Self-Care Condition: Stable Instructions: Antibiotic Form, Urinary Urgency and Frequency (DC) Additional Instructions: Follow-up with Urology as already scheduled Today your urine did not show signs of an infection Follow-up with primary care provider, today your blood pressure was elevated at 183/80 If you are having a hard time finding a physician please call our [facility] liaison at [phone]. For new or worsening symptoms go directly to the emergency room Patient Language: Ukrainian Prescriptions: No Action No Home Medications lisinopril 10 mg Tablet 10 mg PO DAILY Qty: 30 0RF clindamycin HCl 300 mg capsule 300 mg PO Q8H Qty: 21 0RF levofloxacin 750 mg tablet 750 mg PO DAILY Qty: 7 0RF Follow-up/Referrals: PHYSICIAN,ACCOUNT EXECUTIVE SALES REPRESENTATIVE [Primary Care Provider] - Time of Disposition: 18:22
[2024-04-19 18:32] LABS: EDUAAPPEAR Clear; EDUABILI Negative (Negative); EDUABLOOD Negative (Negative); EDUACOLOR1 Yellow; EDUAGLUCOSE Negative (Negative); EDUAKETONE Negative (Negative); EDUALEUKO Negative (Negative); EDUANITRATE Negative (Negative); EDUAPROTEIN Negative (Negative); EDUASPGRAVITY 1.005; EDUAUROBILI 0.2
== END 2024-04-19 18:34 | disposition home or self-care (01) ==
PROVIDERS: Emergency Provider Nurse Practitioner
DX: R35.0 Frequency of micturition (principal); I10 Essential (primary) hypertension; Z87.891 Personal history of nicotine dependence
CPT/HCPCS: 81003; 99212; G0463

== ENCOUNTER 2024-07-14 13:42 | Outpatient (CLI) | payer MEDICARE, SELFPAY ==
--- NOTE | ~2024-07-14 | PE_ITS ---
EXAMINATION: PET_PETPSMAST_PT DATE: 07/14/2024 16:07 INDICATION: Prostate cancer TECHNIQUE: 4.999 mCi of Illucix Ga-68([id number]) was administered i.v. Low dose computed bryant graphy (CT) images were acquired from the base of the brain to the base of the brain to the proximal thighs for attenuation correction and anatomic localization. Positron emission tomography (PET) image s were acquired in the same distribution beginning 89 minutes after injection. Images including fused PET/CT images were reconstructed in axial, coronal, and sagittal planes. Automated exposure control technique was employed. The dose-length product was 1450.25mGy-cm. COMPARISON: None FINDINGS: Head/neck: Typical pattern of symmetric physiologic increased activity in the lacrimal, parotid and submandibula r glands as well as along the mucosa of the nasal and oral cavities, pharynx and hypopharynx. No path ologically enlarged cervical lymphadenopathy or suspicious foci of increased uptake in the visualized head or neck. Chest: Respiratory motion the lungs. No suspicious pulmonary nodules, pneumonia, pulmonary edema or pleural effusion. Heart size is normal. Atherosclerotic coronary artery calcification and aortic valve calcif ic location. No pericardial effusion. Thoracic aorta is normal in caliber. No pathologically enlarged or PSMA avid thoracic lymphadenopathy. Abdomen/pelvis/proximal thighs: Physiologic renal accumulation and excretion of activity in the kidneys, bladder and along portions o f ureters. Prostatomegaly measuring 5.2 x 4.4 cm. There is diffuse increased activity extending poste riorly from the left to the right side side of the prostate with maximal SUV of 12.1 consistent with primary prostate cancer. Normal degree and slightly heterogenous pattern of increased uptake througho ut the liver and spleen without radiologic correlate or dominant PSMA avid lesion. The gallbladder, p ancreas and bilateral adrenal glands are normal. Moderate uptake scattered throughout the bowels with typical duodenal and proximal jejunal predominance and without radiologic correlate, also likely phy siologic. Mild scattered diverticulosis without adjacent inflammatory stranding to suggest diverticul itis. No other abnormal foci of increased uptake or pathologically enlarged lymphadenopathy in the ab domen, pelvis or proximal thighs. Musculoskeletal: Mild S-shaped curvature of the thoracic and lumbar spine with moderate spondylosis. There is a lucent hemangioma at T8 with thickened vertical trabecular pattern. No suspicious lytic, blastic or abnorma lly PSMA avid bone lesions. IMPRESSION: 1. Increased uptake throughout the posterior aspect of the enlarged prostate consistent with primary prostate cancer. No evident metastatic disease. Reviewed, dictated and finalized at location A. IMPRESSION: 1. Increased uptake throughout the posterior aspect of the enlarged prostate co nsistent with primary prostate cancer. No evident metastatic disease.
--- OUTSIDE RECORDS SUMMARY | 2024-07-14 13:53 | XMS_ITS | Encounter Summary ---
Author Organization [facility] Address [address] [place] [address] Care Team Providers Care Surveyor Rod Helper Name Role Phone Unavailable Primary Care Provider Unavailabl e Encounter Details Date Type Department Care Team (Late st Contact Info) Description 06/18/2023 Lab Requisition [facility] - DermPath Lab [address] [facility] [address] [place] [address] Ronna Hdz MD [address] [facility] [address] [place] [address] Social History Tobacco Use Types Packs/Day Years Used Date Smoking Tobacco: Never Assessed Sex and Gender Information Value Date Recorded Sex Assigned at Not on file Legal Sex Male 6:33 AM CLERICAL SUPPORT Gender Identity Not on file Sexual Orientation Not on file documented as of this encounter Plan of Treatment Not on file documented as of this encounter Procedures Procedure Name Priority Date/Time Associated Diagnosis Comments DERMATOPATHOLOGY Routine 06/18/2023 3:26 PM CDT documented in this encounter Results * DERMATOPATHOLOGY (06/18/2023 3:26 PM CDT) Case Report Dermatopathology Report Case: [id number] Authorizing Provider: Ronna Hdz MD Collected: 06/18/2023 03:26 PM Ordering Location: [facility] Physician [facility] - Received: 06/19/2023 01:51 PM DermPath Lab Pathologist: Magaly Casiano MD Specimen: Skin, right neck 4 1:39 PM CDT DERMATOPATHOLOGY LABORATORY Final Diagnosis Specimen A. SKIN, right neck: BASAL CELL CARCINOMA, INFILTRATIVE PATTERN (C44.41) 4 1:39 PM CDT DERMATOPATHOLOGY LABORATORY Clinical History BCC vs SCC vs other; Growing Irritated 1:39 PM CDT DERMATOPATHOLOGY LABORATORY Gross Description Specimen A: Received is one formalin filled container labeled with the patient's name and designated right neck. The specimen consists of a shave biopsy measuring 4x4x1 mm. Jar 0. 1:39 PM CDT DERMATOPATHOLOGY LABORATORY Microscopic Description Specimen A. SKIN, right neck: Within the dermis there are nodular aggregates of basaloid cells associated with fibromyxoid stroma and epithelial-stromal clefts. At the advancing margin of the neoplasm, there are smaller angulated nests that infiltrate the dermis. 1:39 PM CDT DERMATOPATHOLOGY LABORATORY Disclaimer An external and internal positive and negative controls are appropriate for the histochemical, immunohistochemical and immunofluorescence stain(s) in this case (if any), except where stated explicitly. The performance characteristics of the stain(s) cited in this report were developed and its performance characteristic determined by the Dermatopathology Laboratory at [facility], directed by Dr. Joann Gonzalez. These tests need not be, and therefore are not, approved by the [place] Food and Drug Administration. The tests are used for clinical purposes. Billing Codes Specimen Charges Stain Charges 77087 1 1:39 PM CDT DERMATOPATHOLOGY LABORATORY Embedded Images 1:39 PM CDT DERMATOPATHOLOGY LABORATORY Pathology/Cytolo gy TISSUE SPECIMEN FROM SKIN / Unknown 06/18/2023 3:26 PM CDT 06/19/2023 1:51 PM CDT Ronna Hdz MD LAB - PATHOLOGY/CYTOLOGY OR DERABLES Final Result DERMATOPATHOLOGY LABORATORY [facility] - Department of Dermatology [address] [place] [address], [facility] [phone] documented in this encounter Visit Diagnoses Not on filedocumented in this encounter
--- OUTSIDE RECORDS SUMMARY | 2024-07-14 13:53 | XMS_ITS | Encounter Summary ---
Author Organization [facility] Address [address] [place] [address] Care Team Providers Care Home Child Care Provider Name Role Phone Unavailable Primary Care Provider Unavailabl e Encounter Details Date Type Department Care Team (Late st Contact Info) Description 07/01/2023 Lab Requisition [facility] - DermPath Lab [address] [facility] [place] [address] Melissa Page DO [address] 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 Gender Identity Not on file Sexual Orientation Not on file documented as of this encounter Plan of Treatment Not on file documented as of this encounter Procedures Procedure Name Priority Date/Time Associated Diagnosis Comments DERMATOPATHOLOGY Routine 07/01/2023 1:20 PM CDT documented in this encounter Results * DERMATOPATHOLOGY (07/01/2023 1:20 PM CDT) Case Report Dermatopathology Report Case: [id number] Authorizing Provider: Melissa Page DO Collected: 07/01/2023 01:20 PM Ordering Location: [facility] Physician [facility] - Received: 07/02/2023 01:51 PM DermPath Lab Pathologist: Megan Casiano MD Specimen: Skin, right neck 1:39 PM CDT DERMATOPATHOLOGY LABORATORY Final Diagnosis Specimen A. SKIN, right neck: RESIDUAL BASAL CELL CARCINOMA; NOT PRESENT AT MARGIN (C44.41) DERMAL SCAR (L90.5) 1:39 PM CDT DERMATOPATHOLOGY LABORATORY Clinical History Bx Proven BCC. Check margins. 1:39 PM CDT DERMATOPATHOLOGY LABORATORY Gross Description Specimen A: Received is one formalin filled container labeled with the patient's name and designated right neck. The specimen consists of a non-oriented ellipse of skin measuring 84q30m6 mm. The epidermal surface is unremarkable. The margin is inked green. The 12 o'clock and 6 o'clock tips are submitted in cassette 1. The remainder of the ellipse is serially sectioned and submitted in cassette 2. Jar 0. 1:39 PM CDT DERMATOPATHOLOGY LABORATORY Microscopic Description Specimen A. SKIN, right neck: Sections show an area of fibrosis, flanked by residual neoplasm composed of atypical basaloid keratinocytes. 1:39 PM CDT DERMATOPATHOLOGY LABORATORY Disclaimer An external and internal positive and negative controls are appropriate for the histochemical, immunohistochemical and immunofluorescence stain(s) in this case (if any), except where stated explicitly. The performance characteristics of the stain(s) cited in this report were developed and its performance characteristic determined by the Dermatopathology Laboratory at [facility], directed by Dr. Joann Gonzalez. These tests need not be, and therefore are not, approved by the [place] Food and Drug Administration. The tests are used for clinical purposes. Billing Codes Specimen Charges Stain Charges 62892 1 1:39 PM CDT DERMATOPATHOLOGY LABORATORY Embedded Images 1:39 PM CDT DERMATOPATHOLOGY LABORATORY Pathology/Cytolo gy TISSUE SPECIMEN FROM SKIN / Unknown 07/01/2023 1:20 PM CDT 07/02/2023 1:51 PM CDT us Melissa Page DO LAB - PATHOLOGY/CYTOLOGY ORDERABLES Final Result DERMATOPATHOLOGY LABORATORY [facility] - Department of Dermatology [address], [address] [phone] documented in this encounter Visit Diagnoses Not on filedocumented in this encounter
--- OUTSIDE RECORDS SUMMARY | 2024-07-14 13:53 | XMS_ITS | Clinical Summary ---
Author Organization [facility] [employer] Address [address] [place] [address] Care Team Providers Care Tread Builder Name Role Phone Unavailable Primary Care Provider Unavailabl e Source Comments [facility] [employer],non-owned Affiliates and Associated Physician Practices is amultiple site organization consisting of ambulatory clinics and hospital sitesin [place], [place], [place] and [place]. This disclosure is being madepursuant to the Care Everywhere program and may not contain all information available regarding this patient. 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 Gender Identity Not on file Sexual Orientation Not on file Plan of Treatment Health Maintenance Due Date Last Done Comments MEDICARE AWV 12 MONTHS 1945 DTAP/TDAP/TD VACCINES (1 - Tdap) 11/03/1962 PNEUMOCOCCAL VACCINE 50+ (1 of 1 - PCV) 11/03/1993 ZOSTER VACCINE (1 of 2) 11/03/1993 Respiratory Syncytial Virus (RSV) Vaccine Pt: or over 60 yrs (1 - 1-dose 75+ series) 11/03/2018 COVID-19 VACCINE ( - 2023-2 5 season) 2023 DEPRESSION SCREENING 03/10/2024 INFLUENZA VACCINE (Season Ended) 2024 HEPATITIS B VACCINE Aged Out No longe r eligible based on patient's age to complete this topic HIB VACCINE Aged Out No longer eligi ble based on patient's age to complete this topic HPV VACCINE Aged Out No longer eligi ble based on patient's age to complete this topic MENINGOCOCCAL (Group B) VACC INE SHARED DECISION-MAKING Aged Out No longer eligibl e based on patient's age to complete this topic MENINGOCOCCAL GROUPS A/C/Y/W VACCINE Aged Out No longer eligible b ased on patient's age to complete [place] [address] MEDICARE [facility]
== END 2024-07-14 13:43 | disposition home or self-care (01) ==
PROVIDERS: Visit Provider Urology
DX: C61 Malignant neoplasm of prostate (principal)
CPT/HCPCS: 78815; A9596

== ENCOUNTER 2024-11-25 19:11 | Emergency (ER) | payer MEDICARE, SELFPAY ==
--- NOTE | ~2024-11-25 | CT_ITS ---
EXAMINATION: CT abdomen pelvis wo/w con DATE: 11/25/2024 23:07 INDICATION: Hematuria. TECHNIQUE: Computed tomography (CT) of the abdomen and pelvis was performed without and with intravenous contrast using a total of 130 mL Omnipaque-350 intravenous contrast with a double-bolus technique for simultaneous opacification of the renal parenchyma and renal collecting system. Automated exposure control and iterative reconstruction technique were employed. The dose- length product was 1861.08 mGy-cm. COMPARISON: None FINDINGS: The visualized portions of the lung bases demonstrate mild atelectasis. No pleural effusion. There is left atrial enlargement of the heart. There are coronary artery calcifications. There are calcifications of the aortic valve. No pericardial effusion. Calcifications in the liver and spleen are consistent with old granulomatous disease. The gallbladder, pancreas, and adrenal glands are normal. There are cysts in the kidneys measuring up to 2.3 cm on the left. There is no urolithiasis. The ureters are well opacified and are normal. The bladder is decompressed by a Cramer catheter. There is diffuse bladder wall thickening. The prostate is moderately enlarged. There is a left inguinal hernia containing fat. There is diverticulosis of the colon without evidence of diverticulitis. The appendix is normal. There are no dilated loops of bowel. There are no pathologically enlarged lymph nodes. There is no free intraperitoneal fluid. There is severe lumbar spondylosis. There is a hemangioma in T8 vertebral body. IMPRESSION: 1. Diffuse wall thickening of the bladder, which may be secondary to chronic outlet obstruction. Bladder decompression decreases sensitivity. Reviewed, dictated and finalized at location E. IMPRESSION: 1. Diffuse wall thickening of the bladder, which may be secondary to chronic ou tlet obstruction. Bladder decompression decreases sensitivity.
--- OUTSIDE RECORDS SUMMARY | 2024-11-25 19:12 | XMS_ITS | Encounter Summary ---
Author Organization [facility] Address [address] [place] [address] Care Team Providers Care Grease Buffer Name Role Phone Unavailable Primary Care Provider Unavailabl e Encounter Details Date Type Department Care Team (Late st Contact Info) Description 07/01/2023 Lab Requisition [facility] - DermPath Lab [address] [facility] [place] [address] Melissa Page DO [address] [facility] [address] [place] [address] Social History Tobacco Use Types Packs/Day Years Used Date Smoking Tobacco: Never Assessed Sex and Gender Information Value Date Recorded Sex Assigned at Not on file 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 Gender Identity Not on file Sexual Orientation Not on file documented as of this encounter Plan of Treatment Not on file documented as of this encounter Procedures Procedure Name Priority Date/Time Associated Diagnosis Comments DERMATOPATHOLOGY Routine 07/01/2023 1:20 PM CDT documented in this encounter Results * DERMATOPATHOLOGY (07/01/2023 1:20 PM CDT) Case Report Dermatopathology Report Case: [id number] Authorizing Provider: Melissa Page DO Collected: 07/01/2023 01:20 PM Ordering Location: [facility] Physician [facility] - Received: 07/02/2023 01:51 PM DermPath Lab Pathologist: Megan Casiano MD Specimen: Skin, right neck 1:39 PM CDT DERMATOPATHOLOGY LABORATORY Final Diagnosis Specimen A. SKIN, right neck: RESIDUAL BASAL CELL CARCINOMA; NOT PRESENT AT MARGIN (C44.41) DERMAL SCAR (L90.5) 1:39 PM CDT DERMATOPATHOLOGY LABORATORY at 1339 CDT Clinical History Bx Proven BCC. Check margins. 1:39 PM CDT DERMATOPATHOLOGY LABORATORY Gross Description Specimen A: Received is one formalin filled container labeled with the patient's name and designated right neck. The specimen consists of a non-oriented ellipse of skin measuring 91n82n0 mm. The epidermal surface is unremarkable. The [...] characteristic determined by the Dermatopathology Laboratory at [facility], directed by Dr. Joann Gonzalez. These tests need not be, and therefore are not, approved by the [place] Food and Drug Administration. The tests are used for clinical purposes. Billing Codes Specimen Charges Stain Charges 82811 1 1:39 PM CDT DERMATOPATHOLOGY LABORATORY Embedded Images 1:39 PM CDT DERMATOPATHOLOGY LABORATORY Pathology/Cytolo gy TISSUE SPECIMEN FROM SKIN / Unknown 07/01/2023 1:20 PM CDT 07/02/2023 1:51 PM CDT us Melissa Page DO LAB - PATHOLOGY/CYTOLOGY ORDERABLES Final Result DERMATOPATHOLOGY LABORATORY [facility] - Department of Dermatology [address], [address] [phone] documented in this encounter Visit Diagnoses Not on filedocumented in this encounter
--- OUTSIDE RECORDS SUMMARY | 2024-11-25 19:12 | XMS_ITS | Encounter Summary ---
Author Organization [facility] Address [address] [place] [place] [address] Care Team Providers Care Mobile Tester Name Role Phone Unavailable Primary Care Provider Unavailabl e Encounter Details Date Type Department Care Team (Late st Contact Info) Description 06/18/2023 Lab Requisition [facility] - DermPath Lab [address] [facility] [place] [address] Ronna Hdz MD [address] [facility] [address] [place] [address] Social History Tobacco Use Types Packs/Day Years Used Date Smoking Tobacco: Never Assessed Sex and Gender Information Value Date Recorded Sex Assigned at Not on file 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 Gender Identity Not on file Sexual Orientation Not on file documented as of this encounter Plan of Treatment Not on file documented as of this encounter Procedures Procedure Name Priority Date/Time Associated Diagnosis Comments DERMATOPATHOLOGY Routine 06/18/2023 3:26 PM CDT documented in this encounter Results * DERMATOPATHOLOGY (06/18/2023 3:26 PM CDT) Case Report Dermatopathology Report Case: [id number] Authorizing Provider: Ronna Hdz MD Collected: 06/18/2023 03:26 PM Ordering Location: [facility] Physician [facility] - Received: 06/19/2023 01:51 PM DermPath Lab Pathologist: Magaly Casiano MD Specimen: Skin, right neck 4 1:39 PM CDT DERMATOPATHOLOGY LABORATORY Final Diagnosis Specimen A. SKIN, right neck: BASAL CELL CARCINOMA, INFILTRATIVE PATTERN (C44.41) 4 1:39 PM CDT DERMATOPATHOLOGY LABORATORY at 1339 CDT Clinical History BCC vs SCC vs other; [...] characteristic determined by the Dermatopathology Laboratory at [facility], directed by Dr. Joann Gonzalez. These tests need not be, and therefore are not, approved by the [place] Food and Drug Administration. The tests are used for clinical purposes. Billing Codes Specimen Charges Stain Charges 97037 1 1:39 PM CDT DERMATOPATHOLOGY LABORATORY Embedded Images 1:39 PM CDT DERMATOPATHOLOGY LABORATORY Pathology/Cytolo gy TISSUE SPECIMEN FROM SKIN / Unknown 06/18/2023 3:26 PM CDT 06/19/2023 1:51 PM CDT Ronna Hdz MD LAB - PATHOLOGY/CYTOLOGY OR DERABLES Final Result DERMATOPATHOLOGY LABORATORY [facility] - Department of Dermatology [address] [place] [address], [facility] [phone] documented in this encounter Visit Diagnoses Not on filedocumented in this encounter
[2024-11-25 19:13] VITALS: BP 130/74; PULSE 92; RESP 16; TEMP 37.1; O2SAT 99
--- OUTSIDE RECORDS SUMMARY | 2024-11-25 21:39 | XMS_ITS | Encounter Summary ---
Author Organization [facility] Address [address] [place] [address] Care Team Providers Care Cephalometric Technician Name Role Phone Unavailable Primary Care Provider Unavailabl e Encounter Details Date Type Department Care Team (Late st Contact Info) Description 06/18/2023 Lab Requisition [facility] - DermPath Lab [address] [facility] [place] [address] Ronna Hdz MD [address] [facility] [address] [place] [address] Social History Tobacco Use Types Packs/Day Years Used Date Smoking Tobacco: Never Assessed Sex and Gender Information Value Date Recorded Sex Assigned at Not on file 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 Gender Identity Not on file Sexual Orientation Not on file documented as of this encounter Plan of Treatment Not on file documented as of this encounter Procedures Procedure Name Priority Date/Time Associated Diagnosis Comments DERMATOPATHOLOGY Routine 06/18/2023 3:26 PM CDT documented in this encounter Results * DERMATOPATHOLOGY (06/18/2023 3:26 PM CDT) Case Report Dermatopathology Report Case: [id number] Authorizing Provider: Ronna Hdz MD Collected: 06/18/2023 03:26 PM Ordering Location: [facility] Physician [facility] - Received: 06/19/2023 01:51 PM DermPath [...] characteristic determined by the Dermatopathology Laboratory at [facility], directed by Dr. Joann Gonzalez. These tests need not be, and therefore are not, approved by the [place] Food and Drug Administration. The tests are used for clinical purposes. Billing Codes Specimen Charges Stain Charges 71717 1 1:39 PM CDT DERMATOPATHOLOGY LABORATORY Embedded Images 1:39 PM CDT DERMATOPATHOLOGY LABORATORY Pathology/Cytolo gy TISSUE SPECIMEN FROM SKIN / Unknown 06/18/2023 3:26 PM CDT 06/19/2023 1:51 PM CDT Ronna Hdz MD LAB - PATHOLOGY/CYTOLOGY OR DERABLES Final Result DERMATOPATHOLOGY LABORATORY [facility] - Department of Dermatology [address]rd [place] [address], [facility] [phone] documented in this encounter Visit Diagnoses Not on filedocumented in this encounter
--- OUTSIDE RECORDS SUMMARY | 2024-11-25 21:39 | XMS_ITS | Encounter Summary ---
Author Organization [facility] Address [address] [facility] [place] [address] Care Team Providers Care Dimension Specification Inspector Name Role Phone Unavailable Primary Care Provider Unavailabl e Encounter Details Date Type Department Care Team (Late st Contact Info) Description 07/01/2023 Lab Requisition [facility] - DermPath Lab [address] [facility] [place] [address] Melissa Page DO [address] [facility] [address] [place] [address] Social History Tobacco Use Types Packs/Day Years Used Date Smoking Tobacco: Never Assessed Sex and Gender Information Value Date Recorded Sex Assigned at Not on file 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 Gender Identity Not on file Sexual Orientation Not on file documented as of this encounter Plan of Treatment Not on file documented as of this encounter Procedures Procedure Name Priority Date/Time Associated Diagnosis Comments DERMATOPATHOLOGY Routine 07/01/2023 1:20 PM CDT documented in this encounter Results * DERMATOPATHOLOGY (07/01/2023 1:20 PM CDT) Case Report Dermatopathology Report Case: [id number] Authorizing Provider: Melissa Page DO Collected: 07/01/2023 01:20 PM Ordering Location: [facility] Physician [facility] - Received: 07/02/2023 01:51 PM DermPath Lab [...] of a non-oriented ellipse of skin measuring 71g98n2 mm. The epidermal surface is unremarkable. The [...] characteristic determined by the Dermatopathology Laboratory at [facility], directed by Dr. Joann Gonzalez. These tests need not be, and therefore are not, approved by the [place] Food and Drug Administration. The tests are used for clinical purposes. Billing Codes Specimen Charges Stain Charges 90926 1 1:39 PM CDT DERMATOPATHOLOGY LABORATORY Embedded Images 1:39 PM CDT DERMATOPATHOLOGY LABORATORY Pathology/Cytolo gy TISSUE SPECIMEN FROM SKIN / Unknown 07/01/2023 1:20 PM CDT 07/02/2023 1:51 PM CDT us Melissa Page DO LAB - PATHOLOGY/CYTOLOGY ORDERABLES Final Result DERMATOPATHOLOGY LABORATORY [facility] - Department of Dermatology [address] [phone] documented in this encounter Visit Diagnoses Not on filedocumented in this encounter
--- OUTSIDE RECORDS SUMMARY | 2024-11-25 21:39 | XMS_ITS | Clinical Summary ---
Author Organization [facility] [employer] Address [address] [facility] [address] [place] [address] Care Team Providers Care Certified Pathology Assistant Name Role Phone Unavailable Primary Care Provider Unavailabl e Source Comments [facility] [employer],non-owned Affiliates and Associated Physician Practices is amultiple site organization consisting of ambulatory clinics and hospital sitesin [place], [place], [place] and [place]. This disclosure is being madepursuant to the Care Everywhere program and may not contain all information available regarding this patient. 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 Gender Identity Not on file Sexual Orientation Not on file Plan of Treatment Health Maintenance Due Date Last Done Comments MEDICARE AWV 12 MONTHS 1945 DTAP/TDAP/TD VACCINES (1 - Tdap) 11/03/1962 PNEUMOCOCCAL VACCINE 50+ (1 of 1 - PCV) 11/03/1993 ZOSTER VACCINE (1 of 2) 11/03/1993 Respiratory Syncytial Virus (RSV) Vaccine Pt: or over 60 yrs (1 - 1-dose 75+ series) 11/03/2018 DEPRESSION SCREENING 03/10/2024 COVID-19 VACCINE (1 - 2023-2 5 season) 2024 INFLUENZA VACCINE (#1) 2024 HEPATITIS B VACCINE Aged Out No [...] patient's age to complete [place] [address] MEDICARE [facility]
[2024-11-25 21:40] LABS: Hematocrit 36.7 % (42.0-52.0); Hemoglobin 12.4 g/dL (14.0-18.0); Immature Granulocyte Percent A 0.4 % (0-0.5); Lymphocytes Absolute Auto 0.43 K/mm3 (0.9-3.2); Mean Corpuscular HGB Conc 33.8 g/dl (32-36); Mean Corpuscular Hemoglobin 30.8 pg (26-34); Mean Corpuscular Volume 91.3 fl (80-100); Nucleated Red Blood Cells Absolute Auto 0.000 K/mm3 (0.0-0.012); Nucleated Red Blood Cells Perc 0.0 % (0.0-0.2); Platelet Count Result 192 k/mm3 (150-375); Red Blood Count 4.02 M/mm3 (4.6-6.20); White Blood Count 5.0 K/mm3 (4.5-10.0)
[2024-11-25 21:51] LABS: INR 1.0; Prothrombin Time 13.5 Seconds (11.1-14.7)
[2024-11-25 21:52] LABS: Partial Thromboplastin Time 24.3 Seconds (22.3-36.8)
[2024-11-25 21:56] LABS: Alanine Aminotransferase 29 U/L (6-50); Albumin Level 4.3 g/dL (3.5-5.1); Alkaline Phosphatase 78 U/L (38-126); Anion Gap 7 mmol/L (4-12); Aspartate Amino Transferase 40 U/L (17-59); Bilirubin,Total 0.7 mg/dL (0.2-1.3); Blood Urea Nitrogen 12 mg/dL (9-20); Calcium 9.1 mg/dL (8.4-10.2); Carbon Dioxide 26 mmol/L (22-30); Chloride 104 mmol/L (98-107); Estimated Glomerular Filt Rate > 60; Glucose 104 mg/dL (65-110); Potassium 4.2 mmol/L (3.4-5.0); Sodium 137 mmol/L (137-145); Total Protein 7.6 g/dL (6.3-8.2)
[2024-11-25 22:14] LABS: Add Urine Microscopic? YES; Appearance Urine Cloudy (Clear); Glucose Urine UA Negative (Negative); Leukocyte Esterase Ur 1+ LEU/UL (Negative); Nitrate Urine Negative (Negative); Non Pathogenic Casts 0-2; Specific Grav Ur 1.013 (1.001-1.035)
--- NOTE | 2024-11-25 23:20 | ED_ITS ---
HPI - Male Genitourinary General Chief complaint: Urogenital-Male Stated complaint: Blood in urine-catheter placement today Time Seen by Provider: 11/25/24 21:27 Source: patient Mode of arrival: ambulatory Limitations: no limitations History of Present Illness HPI Narrative: Patient is an 79 y/o male who presents to the ED with c/o hematuria. Patient is currently undergoing radiation therapy for prostate cancer. Follow-up by Dr. Jones, Dr. Harshil Patricia. States he received his 21st radiation therapy treatment today, but had difficulty getting through the procedure due to rectal pain and difficulty urinating. Was found to have urinary retention. Had Cramer catheter placed. States additionally it was draining appropriately, however began draining bright red blood. Denied noticing significant clots. Reports he has had some intermittent rectal pain and balance changes since beginning radiation therapy. Denies significant abdominal pain, back/flank pain at this time. Denies nausea, vomiting, fevers. Patient is not on any anticoagulation. Related Data Home Medications ?Medication ?Instructions ?Recorded ?Confirmed ?Last Taken ?Type No Home Medications 06/18/20 06/18/20 U nknown History Allergies Allergy/AdvReac Type Severity Reaction Status Date / Time adhesive tape Allergy Intermediate Rash Verified 11/25/24 19:12 Review of Systems 2 Review of Systems: All systems reviewed & are unremarkable except as noted in HPI. All systems reviewed & are unremarkable except as noted in HPI and below PMFSH Past Medical History Medical History Anal fissure Hypertension Social History Social History Smoking status: Former smoker Tobacco type: cigarettes Smoking end date: 03/26/72 Alcohol intake: current Drinks per week: 3 Substance use: never Gender identity (if verbalized by the patient): Male Spiritual care concerns: No Exam 2 Narrative: GENERAL: Well appearing, well-nourished, non-toxic, in no acute distress. HEAD: Normocephalic, atraumatic. RESPIRATORY: Airway patent, respirations nonlabored. Clear to auscultation bilaterally, no rales, rhonchi, wheezing. CARDIOVASCULAR: Regular rate and rhythm without murmurs, rubs, or gallops. ABDOMINAL: Soft, nontender, nondistended. Normoactive BS. Leg bag catheter draining dark yellow urine, 1 small clot present. MUSCULOSKELETAL: Moves all extremities. No gross deformities. SKIN: Warm, dry, normal color. NEURO: A&O X3. Speech clear. Cranial nerves II-XII grossly intact. Steady gait. No ataxic movements. PSYCHIATRIC: Appropriate mood and affect. Normal interaction. Course Vital Signs Vital signs: Vital Signs Temperature 98.7 F 11/25/24 19:13 Pulse Rate 92 11/25/24 19:13 Respiratory Rate 16 11/25/24 19:13 Blood Pressure 130/74 11/25/24 19:13 Pulse Oximetry 99 11/25/24 19:13 Temperature 98.7 F 11/25/24 19:13 Pulse Rate 88 11/25/24 23:30 Respiratory Rate 18 11/25/24 23:30 Blood Pressure 129/69 11/25/24 23:30 Pulse Oximetry 98 11/25/24 23:30 MDM - Male Genitourinary MDM Narrative Medical decision making narrative: Patient presented to ED with hematuria, had to have Cramer catheter placed today for acute urinary retention. Currently undergoing radiation therapy for prostate cancer. Vital signs are stable upon arrival. Cbc without leukocytosis. H&H is stable at 12.4. No recent records to compare to. CMP with stable kidney function. UA with 2+ ketones, 1+ leuk esterase, greater than 100 RBC, only 6-10 WBC. No urine bacteria seen. Sent for culture. CT scan of abdomen/pelvis with and without contrast obtained. No significant abnormalities noted. Does show bladder wall thickening. No obvious clots within the bladder. No hydronephrosis, ureterolithiasis. Discussed case with Dr. Ruby, urology, agreed with plan for course of antibiotics for abnormal UA, plenty of hydration, recommended patient to avoid NSAIDs at this time, f/u with urology in office. Discussed lab and imaging findings extensively with patient and family. They are in agreement with plan. Given 1st dose of Keflex in the ED. Discharge home with catheter. Advised to contact Urology office tomorrow to make follow-up appointment. Advised strict return precautions should catheter stops draining appropriately. Patient and family in agreement with plan. Discharged in stable condition -- Patient was discharged during down time. Please see down time paper documentation. Medical Records Attestation: I reviewed the patient's medical records. Lab Data Attestation: I reviewed the patient's lab results. 11/25/24 21:33 11/25/24 21:33 Labs: Lab Results 11/25/24 11/25/24 Range/Units 21:33 22:03 WBC 5.0 (4.5-10.0) K/mm3 RBC 4.02 L (4.6-6.20) M/mm3 Hgb 12.4 L (14.0-18.0) g/dL Hct 36.7 L (42.0-52.0) % MCV 91.3 (80-100) fl MCH 30.8 (26-34) pg MCHC 33.8 (32-36) g/dl RDW 14.0 (11.5-14.5) % Plt Count 192 (150-375) k/mm3 MPV 8.8 (7.4-10.4) fl Immature Gran % (Auto) 0.4 (0-0.5) % Neut % (Auto) 76.8 H (45.5-73.1) % Lymph % (Auto) 8.5 L (18.3-44.2) % [place] % (Auto) 10.5 H (2.6-8.5) % Eos % (Auto) 3.6 (0-4.4) % Baso % (Auto) 0.2 (0.2-1.2) % Lymph # (Auto) 0.43 L (0.9-3.2) K/mm3 [place] # (Auto) 0.5 (0.1-0.6) K/mm3 Eos # (Auto) 0.2 (0-0.3) K/mm3 Baso # (Auto) 0.0 (0.0-0.1) K/mm3 Abs Immat Gran (auto) 0.02 (0.00-0.031) K/mm3 Absolute Neuts (auto) 3.9 (1.3-6.7) K/mm3 Absolute Nucleated RBC 0.000 (0.0-0.012) K/mm3 Nucleated RBC % 0.0 (0.0-0.2) % PT 13.5 (11.1-14.7) Seconds INR 1.0 APTT 24.3 (22.3-36.8) Seconds Sodium 137 (137-145) mmol/L Potassium 4.2 (3.4-5.0) mmol/L Chloride 104 (98-107) mmol/L Carbon Dioxide 26 (22-30) mmol/L Anion Gap 7 (4-12) mmol/L BUN 12 (9-20) mg/dL Creatinine 0.70 (0.7-1.3) mg/dL Estim Creat Clear Calc Not Reportable Estimated GFR > 60 (59 - ) Glucose 104 (65-110) mg/dL Calcium 9.1 (8.4-10.2) mg/dL Total Bilirubin 0.7 (0.2-1.3) mg/dL AST 40 (17-59) U/L ALT 29 (6-50) U/L Alkaline Phosphatase 78 (38-126) U/L Total Protein 7.6 (6.3-8.2) g/dL Albumin 4.3 (3.5-5.1) g/dL Urine Color Yellow (Yellow) Urine Appearance Cloudy H (Clear) Urine pH 5.5 (5.0-9.0) Ur Specific Beauty 1.013 (1.001-1.035) Urine Protein 2+ H (Negative) mg/dL Urine Glucose (UA) Negative (Negative) mg/dL Urine Ketones 2+ H (Negative) mg/dL Ur Blood (Man) 3+ H (Negative) Urine Nitrate Negative (Negative) Urine Bilirubin Negative (Negative) Urine Urobilinogen 0.2 (<2.0) mg/dL Leukocyte Esterase Rfl 1+ H (Negative) DEISRE/UL Urine RBC >100 H (0-2) /hpf Urine WBC 6-10 H (0-3) /hpf Ur Squamous Epith Cells None seen (Few) /hpf Urine Bacteria None seen /hpf Urine Casts 0-2 Imaging Data Attestation: I personally reviewed and interpreted this imaging study as follows: Discharge Plan Discharge Clinical Impression: Hematuria, Urinary tract infection, History of prostate cancer Patient Disposition: Home Condition: Stable Patient Language: Russian Prescriptions: No Action No Home Medications lisinopril 10 mg Tablet 10 mg PO DAILY Qty: 30 0RF clindamycin HCl 300 mg capsule 300 mg PO Q8H Qty: 21 0RF levofloxacin 750 mg tablet 750 mg PO DAILY Qty: 7 0RF Follow-up/Referrals: PHYSICIAN,ELECTRON[employer]ING [employer]ICE [employer]PERVISOR [Primary Care Provider, Internal Medicine]
[2024-11-25 23:30] VITALS: BP 129/69; PULSE 88; RESP 18; O2SAT 98
[2024-11-25] MEDS: SODIUM CHLORIDE 0.9% IV 1,000 ML 999 ML IV CONT (23:35)
== END 2024-11-26 03:19 | disposition home or self-care (01) ==
LOC: ANHED 21:37
PROVIDERS: Emergency Medicine; Emergency Provider Physician Assistant
DX: N39.0 Urinary tract infection, site not specified (principal); R31.9 Hematuria, unspecified; C61 Malignant neoplasm of prostate; I10 Essential (primary) hypertension; Z87.891 Personal history of nicotine dependence; Z79.899 Other long term (current) drug therapy
CPT/HCPCS: 36415; 74178; 80053; 81001; 85025; 85610; 85730; 87086; 96360; 99284; A9270; J7030; Q9967